=== PATIENT | female | born 1975 | race American Indian/Alaskan Native ===

== ENCOUNTER 2018-03-25 15:37 | Emergency (ER) | payer OTHER ==
[2018-03-25 15:52] VITALS: BP 114/71
[2018-03-25] MEDS ORDERED: BOOSTRIX IM ONE (16:05)
[2018-03-25] MEDS ORDERED: MOTRIN PO ONE (16:05)
[2018-03-25] MEDS ORDERED: KEFLEX PO ONE (16:05)
--- NOTE | 2018-03-25 16:11 | Emergency Department Report ---
ED Upper Extremity Inj HPI - General Chief Complaint: Extremity Injury, Upper Stated Complaint: RIGHT HAND/ FINGER INJURY Time Seen by Provider: 03/25/18 16:00 Source: patient Mode of arrival: Ambulatory Limitations: No Limitations - History of Present Illness Initial Comments: Healthy 39 yo female with partial amputation of the distal right middle finger while working at [employer], cut by a wihtney roberts MD Complaint: Injury to:: right, finger -: Sudden Other Extremity Injury: Fingers: Right Other Injuries: none Handedness: right Context: laceration - Related Data Allergies Allergy/AdvReac Type Severity Reaction Status Date / Time No Known Allergies Allergy Unverified 03/25/18 15:47 ED Review of Systems ROS: Stated complaint: RIGHT HAND/ FINGER INJURY Other details as noted in HPI Constitutional: denies: fever, malaise Skin: rash, lesions, change in hair/nails ED Past Medical Hx - Past Medical History Previous Medical History?: No - Surgical History Past Surgical History?: Yes Additional Surgical History: x 1 - Social History Smoking Status: Never Smoker Substance Use Type: Non Opiate Pain ED Physical Exam - General Limitations: No Limitations General appearance: alert, in no apparent distress - Respiratory Respiratory exam: Absent: respiratory distress - Neurological Exam Neurological exam: Present: alert, oriented X3 - Other Other exam information: soft tissue amputation of the tip of the right middle finger with 1/2 of the nail missing/lacerated, no bleeding, healthy soft tissue exposed 1.5 cm diameter of missing skin tissue ED Course Vital Signs 03/25/18 15:47 Temperature 98.1 F Pulse Rate 61 Respiratory 20 Rate Blood Pressure 114/71 O2 Sat by Pulse 100 Oximetry ED Medical Decision Making - Radiology Data Radiology results: report reviewed, image reviewed - Medical Decision Making distal partial amputation of the soft tissue and nail of the third right finger , Patient will need referral to hand surgeon arranged through workman's compensation clinic through employer, vaseline gauze and sterile dressing applied. No fx on radiographs The injury is expected to heal well through secondary intention with possible permanent nail damage Critical care attestation.: If time is entered above; I have spent that time in minutes in the direct care of this critically ill patient, excluding procedure time. ED Disposition Clinical Impression: Finger near amputation, right, Nail avulsion, finger Disposition: DC- TO HOME OR SELFCARE Is pt being admited?: No Does the pt Need Aspirin: No Condition: Stable Instructions: Finger Amputation (ED) Additional Instructions: Please have your employer arrange follow up with a hand surgeon. Forms: Work/School Release Form(ED) Time of Disposition: 16:13
--- NOTE | 2018-03-25 17:05 | XRay Report ---
FINAL REPORT EXAM: XR FINGER(S) 2+V RT HISTORY: finger amputation TECHNIQUE: AP view of right hand and 2 views of right long finger. PRIORS: None. FINDINGS: No apparent fracture or dislocation. Joint spaces maintained. Soft tissue defect and partial amputation of the long finger distal phalangeal tip, partially obscured by bandaging artifact. Remainder of soft tissues grossly unremarkable. IMPRESSION: 1. No acute osseous abnormality. 2. Soft tissue posttraumatic change.
== END 2018-03-25 17:03 | disposition home or self-care (01) ==
LOC: EDSEX → EDBD 15:37 → ED 15:37
DX: S61.302A Unspecified open wound of right middle finger with damage to nail, initial encounter (principal); W26.8XXA Contact with other sharp object(s), not elsewhere classified, initial encounter; Y93.89 Activity, other specified; Y99.8 Other external cause status; Y92.89 Other specified places as the place of occurrence of the external cause
CPT/HCPCS: 90471; 90715